=== PATIENT | male | born 1955 | race Caucasian/White ===

== ENCOUNTER 2019-11-24 04:55 | Inpatient (IN) ==
[2019-11-24 05:36] LABS: BASO# 0.01 X1000 (0.0-0.2); BASO% 0.2 % (0.0-0.8); EOS# 0.01 X1000 (0.0-0.7); EOS% 0.2 % (0.0-10.0); HEMATOCRIT 50.3 % (42.0-52.0); HEMOGLOBIN 16.3 g/dL (14.0-18.0); LYMPH# 0.91 X1000 (1.2-3.4); MCH 30.4 PG (27-31); MCHC 32.4 g/dL (33-37); MCV 93.7 FL (81-99); MONO# 0.94 X1000 (0.11-0.59); MONO% 14.5 % (1.7-9.3); MPV 9.6 FL (7.4-10.4); NEUT# 4.61 X1000 (1.4-6.5); NEUT% 71.1 % (42.2-75.2); PLT 179 X1000 (130-400); RBC 5.37 XMIL (4.7-6.1); RDW 13.4 % (11.5-14.5); WBC 6.48 X1000 (4.8-10.8)
[2019-11-24] MEDS ORDERED: ZOFRAN IV ONE (05:37)
[2019-11-24] MEDS ORDERED: NS 1,000 ML IV ONE (05:37)
[2019-11-24 05:56] LABS: AGAP 14; ALB/GLOB RATIO 1.4; ALBUMIN 3.9 g/dL (3.5-5.0); ALKALINE PHOSPHATASE 51 U/L (32-122); AMYLASE 41 U/L (20-200); BUN 22 mg/dL (8-22); CALCIUM 8.6 mg/dL (8.8-10.2); CHLORIDE 97 mmol/L (98-107); COSMO 279; ESTIMATED GFR > 60; GLUCOSE 104 mg/dL (70-104); GOT 23 U/L (10-34); GPT 13 U/L (10-44); LIPASE 31 U/L (13-60); POTASSIUM 4.4 mmol/L (3.5-5.1); SODIUM 138 mmol/L (136-145); TCO2 27 mmol/L (25-35); TOTAL BILIRUBIN 0.41 mg/dL (0.20-1.00); TOTAL PROTEIN 6.7 g/dL (6.3-8.3)
[2019-11-24] MEDS ORDERED: DILAUDID IV ONE ×2 (06:44→07:47)
--- NOTE | 2019-11-24 07:42 | Diag Imaging Result Doc PS360 ---
CT ABD/PELVIS W/IV CONT ONLY - 11/24/2019 INDICATION: RLQ abdo pain, vomiting COMPARISON: None FINDINGS: There is linear atelectasis in the lower lobes bilaterally. Heart size is normal with no pericardial effusion. There are cholecystectomy clips. There is a benign cyst in the liver hilum measuring about 2 cm. Otherwise all abdominal organs are normal. There is a right inguinal hernia containing a loop of small bowel that is highly obstructed. There is indeed severe dilation of the stomach and most of the small bowel. The distal small bowel, colon, and rectum are all completely collapsed. No free air. Trace pelvic free fluid. Urinary bladder, prostate, and rectum are normal. Bones are intact and well mineralized. IMPRESSION: Right inguinal hernia containing a loop of small bowel which is causing severe distal small bowel obstruction. This report was discussed with Dr. Vega on 11/24/2019 at 7:39 AM and was readback. This exam was performed using automated exposure control, adjustment of mA or kV according to patient size, and/or use of iterative reconstruction technique Electronically signed by Tim Chamorro 11/24/2019 7:40 AM
[2019-11-24] MEDS ORDERED: ZOFRAN IV PRN ×2 (07:49→12:59)
[2019-11-24] MEDS ORDERED: DILAUDID IM PRN (07:49)
--- NOTE | 2019-11-24 07:51 | PROVIDER DOCUMENTATION ---
This chart was entered by Nilda Keller Scribe, acting as scribe for Keny Vega MD. HPI-Abdominal Pain/GI Problem - General Chief Complaint: Abdominal Pain Stated Complaint: STOMACH, NAUSEA Time Seen by Provider: 11/24/19 04:58 Source: patient Allergies/Adverse Reactions: Patient Allergies Allergy/AdvReac Type Severity Reaction Status Date / Time Penicillins Allergy Severe syncope Verified 11/24/19 05:36 Home Medications: Home Medication List Medication Instructions Recorded Confirmed Last Taken Type Clonazepam 0.5 mg PO BID 11/24/19 11/24/19 11/21/19 History Fluoxetine [Prozac] 20 mg PO DAILY 11/24/19 11/24/19 11/21/19 History Modafinil 200 mg PO DAILY 11/24/19 11/24/19 11/21/19 History - History of Present Illness-ABD Nature of Presenting Problems: 64yom presents to ED cc for last 3 days, lump in RLQ, n/v but no vomiting last 24hrs. Pt reports BM 2 days ago which is normal for pt. Pt has hx of hernia in RLQ that is reducible. Pt is nontoxic and in no acute distress upon exam. Abdominal Pain Onset Location: reports: RLQ Quality of Pain: reports: aching Severity in ED: reports: mild Onset/Duration: reports: 3 days ago Timing: reports: still present Activities at Onset: reports: light activity Modifying Factors: worse with: palpation Associated Symptoms: reports: nausea, vomiting Last BM: 2 days ago Similar Symptoms Previously?: No Recently seen or treated by another doctor?: No Review of Systems - Adult - REVIEW OF SYSTEMS - ADULT Constitutional: reports: see HPI. denies: chills, fever, fatique Eyes: reports: no symptoms reported Ears, Nose, Mouth & Throat: reports: no symptoms reported Cardiovascular: reports: no symptoms reported Respiratory: reports: see HPI. denies: cough, shortness of breath Gastrointestinal: reports: see HPI, abdominal pain (RLQ), nausea, vomiting. denies: constipation, diarrhea Genitourinary: reports: no symptoms reported Musculoskeletal: reports: no symptoms reported Integumentary: reports: no symptoms reported Neurological: reports: no symptoms reported Psychiatric: reports: no symptoms reported Endocrine: reports: no symptoms reported Hematologic/Lymphatic: reports: no symptoms reported Allergic/Immunologic: reports: no symptoms reported All Other Systems: Reviewed and Negative Past History - Adult - PAST MEDICAL HISTORY-ADULT Review of Records: reports: Nursing Assessment Review, Medications Reviewed, Social history reviewed & non-contributory. Major Childhood Illnesses: reports: denies history Cardiovascular: reports: denies history Respiratory: reports: denies history Gastrointestinal: reports: denies history Obstetrical/Gynecological: reports: denies history Genitourinary: reports: denies history Musculoskeletal: reports: denies history Neurological: reports: denies history Endocrine/Immune: reports: denies history Other Conditions: reports: denies history - IMMUNIZATION STATUS Childhood Immunizations: See Nurse Assessment Flu Vaccine: See Nurse Assessment - FAMILY HISTORY Family History: reviewed, not pertinent Physical Exam-General - PHYSICAL EXAM-ADULT Initial Vital Signs Reviewed: Yes - CONSTITUTIONAL General Appearance: appears well, alert, no apparent distress. negative: an xious, combative - EYES Eyes: PERRL/EOMI, pink conjunctivae. negative: photophobia - HEAD, EARS, NOSE, MOUTH & THROAT HENMT: normocephalic/atraumatic, moist mucous membranes. negative: angioedema - NECK Neck: supple, normal inspection - RESPIRATORY Respiratory: chest non-tender, lungs clear, normal breath sounds. negative: rales, rhonchi - CARDIOVASCULAR Cardiovascular: normal peripheral pulses, regular rate, rhythm. negative: bradycardia, tachycardia - GASTROINTESTINAL (ABDOMEN) Abdominal Exam: normal bowel sounds, soft, tenderness (RLQ), hernia (small that is reducible). negative: rebound - LYMPHATIC Lymphatic: no adenopathy. negative: enlargement - MUSCULOSKELETAL Back Exam: normal inspection, no CVA tenderness, no vertebral tenderness Extremity: normal inspection, normal capillary refill. negative: deformity - SKIN Integumentary: normal color. negative: diaphoresis, jaundice, rash - PSYCHIATRIC Psych/Mental Status: normal mood/affect, oriented x 3. negative: anxious, disheveled Progress - PLAN OF CARE/RESULTS Progress/Plan/Lab Results: Vital Signs - 8 hr 11/24/19 04:59 Temperature 98.3 F Pulse Rate 90 Respiratory Rate 18 Blood Pressure 116/80 O2 Sat by Pulse Oximetry 96 Laboratory Results - last 24 hr 11/24/19 11/24/19 11/24/19 05:15 05:15 05:15 WBC 6.48 RBC 5.37 Hgb 16.3 Hct 50.3 MCV 93.7 MCH 30.4 MCHC 32.4 L RDW Std Deviation 13.4 Plt Count 179 MPV 9.6 Immature Gran % (Auto) 0.0 Neut % (Auto) 71.1 Lymph % (Auto) 14.0 L Dodge % (Auto) 14.5 H Eos % (Auto) 0.2 Baso % (Auto) 0.2 Immature Gran # (Auto) 0.00 Neut # (Auto) 4.61 Lymph # (Auto) 0.91 L Dodge # (Auto) 0.94 H Eos # (Auto) 0.01 Baso # (Auto) 0.01 Sodium 138 Potassium 4.4 Chloride 97 L Carbon Dioxide 27 Anion Gap 14 BUN 22 Creatinine 1.0 Estimated GFR/1.73 m2 > 60 BUN/Creatinine Ratio 22 Glucose 104 Calculated Osmolality 279 Calcium 8.6 L Total Bilirubin 0.41 AST 23 ALT 13 Alkaline Phosphatase 51 Troponin T High Sens 7 Total Protein 6.7 Albumin 3.9 Globulin 2.8 Albumin/Globulin Ratio 1.4 Amylase 41 Lipase 31 Orders Category Date Time Status CT ABD/PELVIS W/IV CONT ONLY [CT] Stat Exams 11/24/19 05:36 Ordered AMYLASE [CHEM] Stat Lab 11/24/19 05:15 Completed CBC WITH ELECTRONIC DIFF [HEME] Stat Lab 11/24/19 05:15 Completed COMPREHENSIVE METABOLIC PANEL [CHEM] Stat Lab 11/24/19 05:15 Completed LIPASE [CHEM] Stat Lab 11/24/19 05:15 Completed TROPONIN T HIGH SENSITIVITY Stat Lab 11/24/19 05:15 Completed URINALYSIS W/POSS RFLX CULT [URINALYSIS] Stat Lab 11/24/19 04:58 Uncollected 0.9% Sodium Chloride Inj [Ns] 1,000 ml Med 11/24/19 05:37 Discontinued IV 999 mls/hr Hydromorphone [Dilaudid] Med 11/24/19 06:44 Discontinued 0.5 mg IV NOW ONE Ondansetron [Zofran] Med 11/24/19 05:37 Discontinued 4 mg IV NOW ONE Result Diagrams: 11/24/19 05:15 11/24/19 05:15 - CT/MRI 1 CT Study: Abdomen Impression: See EMR Report (IMPRESSION: Right inguinal hernia containing a loop of small bowel which is causing severe distal small bowel obstruction. This report was discussed with Dr. Vega on 11/24/2019 at 7:39 AM and was readback. This exam was performed using automated exposure control, adjustment of mA or kV according to patient size, and/or use of iterative reconstruction technique Electronically signed by Tim Chamorro 11/24/2019 7:40 AM) - CONSULTS/PCP/HOSPITALIST Notification #1 *Consult/PCP/Hospitalist*: Dr. Valdes Time Discussed: 07:42 Consult Disposition: Admit Departure - Departure Date of Disposition Decision: 11/24/19 Time of Disposition Decision: 07:45 DIAGNOSIS: Small bowel obstruction, Abdominal hernia Disposition: ADMITTED INPATIENT 09 Certified Medical Emergency: Emergent Condition: Serious Referrals and Follow-Ups: Vicente Tinoco MD [Primary Care Provider] - Discharge Education: Steps to Quit Smoking, [id number] - Critical Care Note This patient required my direct & personal management of CC.: No Attestation - Physician/ JOHN Attestation Patient care was provided by Advanced Practice Provider:: No The physician spent face to face time with patient:: Yes Advanced Practice Provider documentation review:: Supervising physician onsite and consulted in the evaluation and care of this patient. The physician did have a face to face encounter with the patient. This chart was documented by the indicated scribe, (Nilda Keller Scribe) and accurately reflects the services I performed and decisions made by me, Keny Vega MD, as attested by the provider's signature.
--- NOTE | 2019-11-24 09:40 | HISTORY AND PHYSICAL ---
ADMITTING DIAGNOSIS: Possible inguina hernia versus right lower quadrant hernia. HISTORY OF PRESENT ILLNESS: 64-year-old gentleman presenting with 3 days of some pain, lump in his right lower quadrant, nausea, vomiting. He reports normal bowel movement 2 days ago but none since then. He has had a history of inguinal hernias repaired on either side but came in for the nausea and vomiting. Does report right lower quadrant pain described as aching and mild that worsened with light activity. He was seen in the EMERGENCY ROOM , had a CT scan that showed a right lower quadrant hernia. PAST MEDICAL HISTORY: Includes sleep apnea, narcolepsy, anxiety. PAST SURGICAL HISTORY: Includes cholecystectomy, open inguinal hernia repairs on either side. SOCIAL HISTORY: Current smoker. ALLERGIES: Penicillin. HOME MEDICATIONS: Reviewed. FAMILY HISTORY: Reviewed with the patient and noncontributory. REVIEW OF SYSTEMS: A full 14 systems reviewed, negative except as specified in HPI. PHYSICAL EXAMINATION: VITAL SIGNS: The patient is currently afebrile. His vital signs are stable. GENERAL: No acute distress. Alert, interactive, male, looks stated age. HEENT: Normocephalic, atraumatic. Pupils equal, round, react to light. Mucous membranes moist. Oropharynx benign. NECK: Supple, trachea midline. CARDIOVASCULAR: Regular rate and rhythm. LUNGS: Grossly clear. ABDOMEN: Soft. Some tenderness in the right lower quadrant. The inguinal canal does not seem to have a bulge. He has a previous hernia incision noted. No erythema noted. No crepitus. EXTREMITIES: Moves all extremities. NEUROLOGIC: Grossly intact. SKIN: No signs of jaundice. VASCULAR: All extremities perfused. LABORATORY: Reviewed. CT scan independently reviewed and radiology report reviewed. ASSESSMENT AND PLAN: A 64-year-old gentleman with right lower quadrant hernia. 1. Right lower quadrant hernia. At this time, may be inguinal versus just right lower quadrant. We will plan on diagnostic laparoscopy and repair. Discussed the patient the risks benefits alternatives, risks including, but not limited to bleeding, infection, risk of anesthesia, risk of recurrence, risk of mesh complication, bowel injury discussed. All questions answered. 2. We will plan on doing this today. cc: Santiago Valdes MD
[2019-11-24] MEDS ORDERED: FENTANYL ONE ×2 (10:08→11:32)
[2019-11-24] MEDS ORDERED: DIPRIVAN 1% ONE (10:08)
[2019-11-24] MEDS ORDERED: VERSED ONE (10:08)
[2019-11-24] MEDS ORDERED: MEFOXIN 2 GM/NS 2 GM/50 ML IVPB ONE (10:24)
[2019-11-24] MEDS ORDERED: SENSORCAINE-MPF 0.5%/EPI 1:200,000 ONE (10:25)
[2019-11-24 10:58] LABS: URINE SOURCE CLEAN CATCH
[2019-11-24 11:12] LABS: BILIRUBIN URINE NEGATIVE (NEGATIVE); BLOOD URINE TRACE (NEGATIVE); COLOR YELLOW; GLUCOSE URINE NEGATIVE (NEGATIVE); KETONE URINE TRACE mg/dL (NEGATIVE); LEUKOCYTES URINE NEGATIVE (NEGATIVE); NITRITE URINE NEGATIVE (NEGATIVE); PROTEIN URINE 50 mg/dL (NEGATIVE); TURBIDITY URINE CLEAR (CLEAR); UROBILINOGEN URINE NORMAL (NORMAL)
[2019-11-24 11:28] LABS: UR EPITHELIAL CELLS <10 /HPF (<10); URINE BACTERIA NEGATIVE /HPF; URINE RBC <10 /HPF (<10); URINE WBC <10 /HPF (<10)
[2019-11-24] MEDS ORDERED: ROBINUL ONE ×2 (11:30→12:05)
[2019-11-24] MEDS ORDERED: EPHEDRINE ONE (11:30)
[2019-11-24] MEDS ORDERED: DECADRON ONE (11:30)
[2019-11-24] MEDS ORDERED: NEOSTIGMINE ONE (11:30)
[2019-11-24] MEDS ORDERED: QUELICIN (DOSE) ONE (11:30)
[2019-11-24] MEDS ORDERED: ZOFRAN ONE (11:30)
[2019-11-24] MEDS ORDERED: XYLOCAINE-MPF 2% ONE (11:30)
[2019-11-24] MEDS ORDERED: ZEMURON ONE (11:30)
[2019-11-24] MEDS ORDERED: NORCO-10 ONE (13:14)
--- NOTE | 2019-11-24 13:23 | OPERATIVE NOTE ---
PROCEDURE DATE: 11/24/2019 PREOPERATIVE DIAGNOSES: 1. Small bowel obstruction. 2. Right lower quadrant hernia. POSTOPERATIVE DIAGNOSES: 1. Small bowel obstruction. 2. Incarcerated right lower quadrant hernia. PROCEDURES PERFORMED: 1. Diagnostic laparoscopy with reduction of incarcerated right lower quadrant hernia. 2. Open repair of right lower quadrant incarcerated hernia with mesh (Ventralex ST 6.4 cm circular mesh). SURGEON: Santiago Valdes MD MOLDER SETTER: None. ANESTHESIA: General endotracheal. FINDINGS: A 2 to 3 cm defect containing bowel that was viable. COMPLICATIONS: None at time of dictation. ESTIMATED BLOOD LOSS: 20 mL. SPECIMENS REMOVED: None. BRIEF HISTORY: A 64-year-old gentleman presenting with a bowel obstruction that he felt needed repair. The risks, benefits, and alternatives were discussed and documented in the history and physical exam. All questions answered. DESCRIPTION OF PROCEDURE: After informed consent was obtained, the patient was brought to the operative theatre, transferred to the operating room table and placed in the supine position. General endotracheal anesthesia was then performed without complication. A formal time out was then performed confirming patient, date, procedure. All in agreement. At that time, we turned our attention to laparoscopic. We made a supraumbilical incision using the Optiview technique and inserted a 5 mm trocar. Upon establishing pneumoperitoneum, we saw that the hernia was not an inguinal hernia but was lateral and superior to this in the right lower quadrant. We placed another trocar lateral to the umbilicus on the left side. We were able to reduce the contents. There were small bowel that was herniated in it. It appeared viable. We watched it for 10 to 15 minutes. It did not seem to be ischemic. It had peristalsis. We felt that it was safe. We marked on the skin where the area was and turned our attention to the skin in the right lower quadrant. We made an incision over the palpable region, carried it all the way down, isolated the external oblique aponeurosis, incised it along its fibers to find the hernia sac and the hernia that was protruding through the internal aponeurosis. Again, it was above the previous mesh. It was not in the inguinal canal. We were able to reduce the contents. I primarily repaired the internal oblique aponeurosis with Tycron sutures. We then placed a piece of mesh with a Ventralex ST 6.4 cm overlay mesh secured in place in 8 places. We then closed the external oblique over this in typical onlay fashion. We then irrigated out the wound, closed it in layers, and closed the laparoscopic port sites. The patient tolerated the procedure well and was transferred back to the recovery room. cc: Santiago Valdes MD
[2019-11-24] MEDS: NORCO-10 PO PRN (14:40)
[2019-11-24] MEDS ORDERED: MEFOXIN 2 GM/NS 2 GM/50 ML IVPB IV ONE (15:30)
[2019-11-24] MEDS: MORPHINE IV PRN ×2 (17:04→20:27)
[2019-11-24] MEDS: HEPARIN SUBQ SCH (20:27)
[2019-11-24] MEDS: KLONOPIN PO SCH (20:27)
[2019-11-25] MEDS: MORPHINE IV PRN ×4 (02:27→17:29)
[2019-11-25] MEDS: HEPARIN SUBQ SCH ×3 (04:46→23:04)
--- NOTE | 2019-11-25 07:00 | GENERAL SURGERY PROGRESS NOTE ---
DATE: 11/25/2019 SUBJECTIVE: Patient seems to be doing okay. OBJECTIVE: Vital Signs: Patient is currently afebrile. His vital signs are stable. General: No acute distress. Cardiovascular: Regular rate and rhythm. Lungs: Grossly clear. Abdomen: Soft, appropriately tender in the right lower quadrant. No peritoneal signs. Incision seems to be healing well. Bowel sounds auscultated. ASSESSMENT AND PLAN: A 64-year-old gentleman status post reduction of right lower quadrant hernia and repair of right lower quadrant hernia. Postoperative state. At this time, the patient seems to be doing okay. We will advance him to a regular diet. If he is seeming to do really well, may consider discharge home tonight, if not, likely in the morning. We will continue to monitor. cc: Santiago Vadles MD
[2019-11-25] MEDS: KLONOPIN PO SCH ×3 (09:30→23:05)
[2019-11-25] MEDS: PROVIGIL PO SCH (09:30)
[2019-11-25] MEDS: PROZAC PO SCH (09:30)
[2019-11-25] MEDS: PERIDEX MT SCH ×2 (09:31→23:04)
[2019-11-25] MEDS: NORCO-10 PO PRN ×2 (11:02→23:05)
[2019-11-25] MEDS ORDERED: THORAZINE PO PRN (22:16)
[2019-11-26] MEDS: HEPARIN SUBQ SCH (06:44)
[2019-11-26 07:32] VITALS: BP 116/63
[2019-11-26] MEDS: KLONOPIN PO SCH (08:27)
[2019-11-26] MEDS: PERIDEX MT SCH (08:27)
[2019-11-26] MEDS: PROVIGIL PO SCH (08:27)
[2019-11-26] MEDS: PROZAC PO SCH (08:30)
[2019-11-26] MEDS: NORCO-10 PO PRN (08:38)
--- NOTE | 2019-11-26 10:49 | GENERAL SURGERY PROGRESS NOTE ---
DATE: 11/26/2019 SUBJECTIVE: Patient seems to be doing okay. He is tolerating his regular diet. He is passing gas. OBJECTIVE: Vital Signs: Patient is currently afebrile. His vital signs stable. General: No acute distress. Cardiovascular: Regular rate and rhythm. Lungs: Grossly clear. Abdomen: Soft, appropriately tender. ASSESSMENT AND PLAN: A 64-year-old gentleman postoperative day #2 from a diagnostic laparoscopy with reduction of hernia and open repair of right lower quadrant hernia. 1. Postoperative state. At this time patient seems to be doing okay. 2. We will plan on discharge today. 3. Discussed with them postoperative care and will give him instructions. cc: Santiago Valdes MD
--- NOTE | 2019-11-28 20:57 | DISCHARGE SUMMARY ---
ADMISSION DATE: 11/24/2019 DISCHARGE DATE: 11/26/2019 ADMITTING DIAGNOSIS: Incarcerated right lower quadrant hernia. DISCHARGE DIAGNOSIS: Status post repair of incarcerated right lower quadrant hernia. ADMITTING PHYSICIAN: Dr. Santiago Valdes. CONSULTATIONS: None. PROCEDURES: On 11/24/2019, patient underwent diagnostic laparoscopy with reduction of an incarcerated right lower quadrant hernia with open repair of right lower quadrant incarcerated hernia with mesh. BRIEF HISTORY AND COURSE: 64-year-old gentleman admitted for a hernia. He was started on the resuscitation process and then underwent previously described procedure which he tolerated well. His postoperative course was uneventful. We did watch him in the hospital because he had bowel that looked a little bit dusky but did perk up during the procedure. We wanted to make sure he did not have any adverse events after his surgery so watched him for 48 hours. He did not have any. He was able tolerate p.o. He is having bowel movements. His pain was controlled and it was felt safe to be discharged home. All arrangements were made. DISCHARGE CONDITION: Stable. DISPOSITION: Home. MEDICATIONS: Patient given prescription for pain medicine. cc: Santiago Valdes MD
== END 2019-11-26 08:55 | disposition home or self-care (01) | DRG 352 ==
LOC: ED 04:55 → EDIPHOLD 04:56 → 4N 08:55
PROVIDERS: ADMIT Surgery; ATTEND Surgery